=== PATIENT | female | born 2005 | race Caucasian/White ===

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

== ENCOUNTER 2025-06-08 09:30 | Emergency (ER) | payer OTHER, SELFPAY ==
--- OUTSIDE RECORDS SUMMARY | 2025-06-08 06:25 | XMS_ITS | Encounter Summary ---
Author Organization [facility] Address [address] [place] [address] Care Team Providers Care Retrieval Specialist Name Role Phone Kenneth Gr MD Primary Care Provider [phone] Reason for Visit * Reason Comments Abdominal Pain Vomiting Nausea Menstrual Problem Encounter Details Date Type Department Care Team (Late st Contact Info) Description 06/08/2025 6:25 AM CDT - 06/08/2025 8:34 AM CDT Emergency [facility] Emergency Medicine [address] [address] Frank Galaviz, [address] [place] [address] Marisabel Ferrera MD [address] [facility] [address] [place] [address] Vaginal bleeding in , first trimester (Primary Dx) Discharge Disposition: Acute Care Hospital Social History Tobacco Use Types Packs/Day Years Used Date Smoking Tobacco: Never Passive Smoke Exposure: Never Smokeless Tobacco: Never Alcohol Use Standard Drinks/Week Comments No 0 (1 standard drink = 0.6 oz pur e alcohol) Feeling Safe Answer Date Recorded Are you in a relationship wi th someone who hurts you emotionally and/or physically? 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 Gender Identity Not on file Sexual Orientation Not on file documented as of this encounter Last Filed Vital Signs Vital Sign Reading Time Taken Comments Blood Pressure 113/58 06/08/2025 8:30 AM CDT Pulse 84 06/08/2025 8:30 AM CDT Temperature 36.6 C (97.8 F) 06/08/2025 8:30 AM CDT Respiratory Rate 18 06/08/2025 8:30 AM CDT Oxygen Saturation 98% 06/08/2025 8:30 AM CDT Inhaled Oxygen Concentration - - Weight 90.1 kg (198 lb 9.6 oz) 06/08/2025 6:18 A M CDT Height 167.6 cm (5' 6 ) 06/08/2025 6:18 AM CDT Body Mass Index 32.05 06/08/2025 6:18 AM CDT documented in this encounter Medications at Time of Discharge tiZANidine (ZANAFLEX) 2 mg TabletIndications:A cute midline low back pain without sciatica Take 1 Tablet (2 mg) by mouth every 6 hours as needed for Spasm. 45 Tablet 2025 levothyroxine 125 mcg tabletIndications:A cquired hypothyroidism Take 1 Tablet (125 mcg) by mouth daily in the morning. Repeat labs before refill 90 Tablet 3 01/03/2025 ibuprofen (MOTRIN) 600 mg tabletIndications:R ight elbow tendonitis TAKE 1 TABLET BY MOUTH EVERY 6 HOURS NEEDED FOR MILD PAIN 90 Tablet 1 02/21/2023 Ventolin HFA 90 mcg/actuation inhalerIndications: Mild persistent asthma without complication INHALE 2 PUFFS BY MOUTH EVERY 6 HOURS NEEDED FOR SHORTNESS OF BREATH 18 Gram 5 02/21/2023 albuterol (PROVENTIL,VENTOLIN ) 2.5 mg /3 mL (0.083 %) Solution for NebulizationIndicat ions:Moderate persistent asthma with acute exacerbation USE 1 VIAL IN NEBULIZER EVERY 4 HOURS NEEDED FOR SHORTNESS OF BREATH OR WHEEZING 180 mL 2 12/06/2023 nebulizerIndication s:Moderate persistent asthma with acute exacerbation Length of need 99 months Nebulizer with compressor, Kit: Disposable Nebulizer Kit, 2 per month, filters , areosol mask: Yes. Name of Medication Albuterol 1 Each 09/02/2022 inhalational spacing device (Microchamber) Spacer Use with inhaler 2 puffs every 6 hours as needed for wheezing 1 Each 04/01/2020 diphenhydrAMINE (BENADRYL) 25 mg tablet Take 25 mg by mouth every 6 hours as needed for Allergies. 11/13/2018 acetaminophen (TYLENOL) 500 mg tablet Take 500 mg by mouth every 6 hours as needed. 11/13/2018 documented as of this encounter ED Notes * Shannan Lester RN - 06/08/2025 8:33 AM CDT Instructions given and understands to go straight to [facility] and nothing to eat or drink. Mom is the hook up driver. Ambulates out of ER well but tearful. Belongings and transfer paperwork sent with patient. Patient remains alert and oriented x 4. Respirations even and unlabored. Jessica pad clean and dry upon leaving. * Shannan Lester RN - 06/08/2025 8:09 AM CDT Provider at bedside. * Shannan Lester RN - 06/08/2025 8:[address] Ferrera speaking to DR Uribe with [facility]. * Shannan Lester RN - 06/08/2025 7:[address] Ferrera calling [facility] Supervisor. Patient in bathroom and noted what appears to be a large clot with possible tissue/ products of conception on pad, collected and sent tolab. DR Ferrera notified * Shannan Lester RN - 06/08/2025 7:23 AM CDT Provider at bedside. * Mitra Berrios RN - 06/08/2025 6:22 AM CDT Carmen Wen 20 y.o. female, arrived to the ED via TRANSPORTATION: private vehicle for complaints of abdomen pain with irregular menses , per patient started about 0430 this am, with pain and passing blood clots, per patient has changed pad 4 times since 4 am , states pad was soaked. Complaining of lower abdomen pain 8/10 intermittent sharp pain. States she has vomited X 2 since 4 am. Chief Complaint Patient presents with Abdominal Pain Vomiting Nausea Menstrual Problem . Vitals taken, patient placed on monitor, clothing removed as needed per policy, privacy provided to patient. Respiratory: WDL - Regular rhythm, symmetrical chest expansion, no dyspnea , Cardiac/Circulatory: WDL - No numbness or tingling, no chest pain , Skin: WDL - Normal color for ethnicity, skin intact, patient is Alert and Oriented x4, pain scale: 8/10, findings; bleeding: see note above noted. Behavior during evaluation: appropriate. Belongings secured, patient Weapons assessment: denied possession of any weapons or firearms at this time. Patient comforted, all questions answered to thebest of the staff's ability, education performed, and left patient in the room with the call light in reach, bed in lowest position, wheels locked, side rails up, per patient her mom is waiting in car. * Marisabel Ferrera MD - 06/08/2025 6:08 AM CDT HISTORY OF PRESENT ILLNESS 20 yo female, comes in with abdominal pain, nausea vomiting. She is also been having worse menstrual period than she normally has. This all started about 4:30 AM. The pain came on and she started passing vaginal blood clots. She has changed her pad 4 times since 4 AM. She states the pads were soaked. She states that it is her lower belly that hurts. She states it is a sharp pain. She rates it an 8/10. She states she has vomited 3 times since 4 AM. She states it is just fluid. She is not able tohold anything down. She states she ate a hot dog last night. She also states she took a muscle relaxer last night which did help somewhat. 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 Relieved by: Muscle relaxer helps somewhat. Worsened by: Nothing tried Ineffective treatments: None tried Associated symptoms: nausea, vaginal bleeding and vomiting Associated symptoms: no anorexia, no belching, no chest pain, no chills, no constipation, no cough,no diarrhea, no dysuria, no fatigue, no fever, no flatus, no hematuria, no melena, no shortness of breath, no sore throat and no vaginal discharge Nausea: Severity: Moderate Onset quality: Sudden Nausea duration: Since 4:30 AM. Timing: Constant Progression: Worsening Vaginal bleeding: Quality: Clots Severity: Moderate Number of pads used: 4 this morning Onset quality: Sudden Duration: Since 4:30 AM. Progression: Unchanged Chronicity: New Vomiting: Emesis appearance: Liquid. Number of occurrences: 3 Severity: Moderate Vomiting duration: Since 4:30 AM. Timing: Intermittent Progression: Unchanged Risk factors: obesity Risk factors: no alcohol abuse, no aspirin use, not elderly, has not had multiple surgeries, no NSAID use, not and no recent hospitalization Vomiting Associated symptoms: abdominal pain Associated symptoms: no chills, no cough, no diarrhea, no fever and no sore throat Nausea Associated symptoms: abdominal pain Associated symptoms: no chills, no cough, no diarrhea, no fever and no sore throat Menstrual Problem Primary symptoms comment: Heavy menses with clots Context: spontaneously Relieved by: None tried Worsened by: Nothing Sexual activity: Sexually active Control: Nothing now: Unknown. Associated symptoms: abdominal pain, nausea and vomiting Associated symptoms: no dysuria and no fever PAST MEDICAL HISTORY REVIEWED MEDICAL: Patient has a past medical history of Anxiety, Asthma, Bronchitis, Dyspnea on exertion, Environmental allergies, Eye injury, Eye injury, Eye injury, Headache, Motion sickness, Pneumonia, Seizure disorder (CMS/HCC), and Thyroid disease. SURGICAL: Patient has a past surgical history that includes pr submucous rescj inferior turbinate prtl/compl (Bilateral, 11/15/2018) and pr tonsillectomy & adenoidectomy age 12/> (Bilateral, 11/15/2018). ALLERGIES Cat hair std allergenic ext; Grass pollen-farhad, standard; Milk; Mite extract; [place]; Peanut; Ragweed; and Fluoxetine PHYSICAL EXAM INITIAL VS BP: 118/88 (06/08/25617), Heart Rate: 73 bpm (06/08/25617), Resp: 18 (06/08/25617), Pulse: 67(06/08/25644), Temp: 96.9 ??F (36.1 ??C) (06/08/25617), Temp src: Temporal (06/08/25617), SpO2: 100 % (06/08/25617), Height: 5' 6 (167.6 cm) (06/08/25617), Weight: 90.1 kg (198 lb 9.6 oz) (06/08/25617), BMI (Calculated): (!) 32.08 (06/08/25617) Patient's last menstrual period was 06/05/2025 (exact date). Physical Exam Vitals and nursing note reviewed. Constitutional: General: She is in acute distress. Appearance: Normal appearance. She is well-developed. She is obese. She is not ill-appearing, toxic-appearing or diaphoretic. Comments: Patient appears to be in pain. HENT: Head: Normocephalic and atraumatic. Nose: Nose normal. No congestion or rhinorrhea. Mouth/Throat: Mouth: Mucous membranes are dry. Pharynx: Oropharynx is clear. No pharyngeal swelling, oropharyngeal exudate or posterior oropharyngeal erythema. Eyes: General: No scleral icterus. Right eye: No discharge. Left eye: No discharge. Extraocular Movements: Extraocular movements intact. Conjunctiva/sclera: Conjunctivae normal. Pupils: Pupils are equal, round, and reactive to light. Cardiovascular: Rate and Rhythm: Normal rate and regular rhythm. Pulses: Normal pulses. Heart sounds: Normal heart sounds. No murmur heard. No friction rub. No gallop. Pulmonary: Effort: Pulmonary effort is normal. No respiratory distress. Breath sounds: Normal breath sounds. No stridor. No wheezing, rhonchi or rales. Chest: Chest wall: No tenderness. Abdominal: General: Abdomen is flat. Bowel sounds are normal. There is no distension or abdominal bruit. Thereare no signs of injury. Palpations: Abdomen is soft. There is no shifting dullness, fluid wave, hepatomegaly, splenomegaly,mass or pulsatile mass. Tenderness: There is abdominal tenderness in the right lower quadrant, suprapubic area and left lower quadrant. There is rebound. There is no right CVA tenderness, left CVA tenderness or guarding. Comments: Moderate reproducible left lower, suprapubic and right lower quadrant tenderness with right lower rebound noted. Musculoskeletal: General: No swelling, tenderness, deformity or signs of injury. Normal range of motion. Cervical back: Normal range of motion and neck supple. No rigidity or tenderness. No muscular tenderness. Right lower leg: No edema. Left lower leg: No edema. Lymphadenopathy: Cervical: No cervical adenopathy. Skin: General: Skin is warm and dry. Coloration: Skin is not cyanotic, jaundiced, mottled or pale. Findings: No bruising, erythema, lesion or rash. Neurological: General: No focal deficit present. Mental Status: She is alert and oriented to person, place, and time. Motor: No weakness. Coordination: Coordination normal. Psychiatric: Mood and Affect: Mood normal. Behavior: Behavior normal. DIAGNOSTICS LAB: CBC WITH DIFFERENTIAL - Abnormal Result Value WBC 8.5 RBC 3.79 (*) HEMOGLOBIN 10.8 (*) HEMATOCRIT 32.5 (*) MCV 85.8 MCH 28.5 MCHC 33.2 RDW 14.2 RDW-STDEV 44.1 PLATELETS 290 MPV 10.8 NEUTROPHILS 66 LYMPHOCYTES 22 MONOCYTES 8 EOSINOPHILS 4 BASOPHILS 1 IMMATURE GRANULOCYTES 0 NEUTROPHIL ABSOLUTE 5.60 LYMPHOCYTE ABSOLUTE 1.84 MONOCYTE ABSOLUTE 0.66 (*) EOSINOPHIL ABSOLUTE 0.31 BASOPHILS ABSOLUTE 0.06 IMMATURE GRANULOCYTES ABSOLUTE 0.03 COMPREHENSIVE METABOLIC PANEL - Abnormal SODIUM 139 POTASSIUM 3.1 (*) CHLORIDE 103 CO2 23 CALCIUM 9.5 BUN 10 CREATININE 0.64 GLUCOSE 86 TOTAL PROTEIN 7.6 ALBUMIN 4.3 BILIRUBIN TOTAL 0.5 ALKALINE PHOSPHATASE 80 AST 15 ALT 10 GFR >60 ANION GAP 13 HCG QUALITATIVE, BLOOD - Abnormal HCG QUAL, BLOOD Positive (*) HCG QUANTITATIVE, BLOOD - Abnormal HCG QUANT, BLOOD 5,006.0 (*) PATHOLOGY RADIOLOGY: No orders to display EKG: PROCEDURES Procedures MEDICAL DECISION MAKING AND PLAN OF CARE Medical Decision Making Assumed care of the patient from slot shift supervisor at 7 AM. By now patient has received 1 L of IV NS and a dose of Zofran 4 mg. Patient has slightly decreased hemoglobin of 10.8 with normal WBC and no left shift. Patient's potassium is 3.1 and other electrolytes are intact. LFT, renal function are all intact. Patient did state that her last menstrual period was possibly on 05/08/2025. Patient denied ever knowingly being . Denied any history of STI. Beta-hCG G is about 5000. Patient passed a large clot mixed with what looked like large amount of tissue. The tissue has been sent out for pathology evaluation. Discussed the case with Dr. Uribe from [facility] in [place] ER who accepted the patient for ER to ER transfer said patient can be evaluated with ultrasound and possibly [facility] if necessary. Pelvic examination was performed there is tenderness in the right adnexa and on speculum examination there is no large clot at the os, however patient has active bleeding. Did not see any other type of discharge and cervix is intact. Patient will go by [facility] directly to [place] emergency department. Amount and/or Complexity of Data Reviewed Labs: ordered. Risk Prescription drug management. Clinical Scoring & Consults Medications Administered During the ED Stay from 06/08/2025 06 to 06/08/2025827 Date/Time Order Dose Route Action 06/08/2025643 CDT sodium chloride 0.9 % bolus solution 1,000 mL 1,000 mL IV New Bag 06/08/2025643 CDT ondansetron (ZOFRAN) 4 mg/2 mL injection 4 mg 4 mg IV Given 06/08/2025718 CDT potassium CHLORIDE (K-DUR,KLOR-CON M20) SR tablet 40 mEq 40 mEq Oral Given Current Discharge Medication List CONTINUE these medications which have NOT CHANGED Details tiZANidine (ZANAFLEX) 2 mg Tablet Take 1 Tablet (2 mg) by mouth every 6 hours as needed for Spasm. Qty: 45 Tablet, Refills: 0 Associated Diagnoses: Acute midline low back pain without sciatica levothyroxine 125 mcg tablet Take 1 Tablet (125 mcg) by mouth daily in the morning. Repeat labs before refill Qty: 90 Tablet, Refills: 3 Associated Diagnoses: Acquired hypothyroidism ibuprofen (MOTRIN) 600 mg tablet TAKE 1 TABLET BY MOUTH EVERY 6 HOURS NEEDED FOR MILD PAIN Qty: 90 Tablet, Refills: 1 Associated Diagnoses: Right elbow tendonitis Ventolin HFA 90 mcg/actuation inhaler INHALE 2 PUFFS BY MOUTH EVERY 6 HOURS NEEDED FOR SHORTNESSOF BREATH Qty: 18 Gram, Refills: 5 Associated Diagnoses: Mild persistent asthma without complication albuterol (PROVENTIL,VENTOLIN) 2.5 mg /3 mL (0.083 %) Solution for Nebulization USE 1 VIAL IN NEBULIZER EVERY 4 HOURS NEEDED FOR SHORTNESS OF BREATH OR WHEEZING Qty: 180 mL, Refills: 2 Associated Diagnoses: Moderate persistent asthma with acute exacerbation nebulizer Length of need 99 months Nebulizer with compressor, Kit: Disposable Nebulizer Kit, 2 per month, filters , areosol mask: Yes.Name of Medication Albuterol Qty: 1 Each, Refills: 0 Comments: HOME Associated Diagnoses: Moderate persistent asthma with acute exacerbation inhalational spacing device (Microchamber) Spacer Use with inhaler 2 puffs every 6 hours as needed for wheezing Qty: 1 Each, Refills: 11 diphenhydrAMINE (BENADRYL) 25 mg tablet Take 25 mg by mouth every 6 hours as needed for Allergies. acetaminophen (TYLENOL) 500 mg tablet Take 500 mg by mouth every 6 hours as needed. STOP taking these medications ferrous sulfate (FeroSuL) 325 mg (65 mg iron) tablet Comments: Reason for Stopping: LAST VS BP: (!) 115/97 (06/08/25799), Heart Rate: 73 bpm (06/08/25617), Resp: 18 (06/08/25799), Pulse: 75 (06/08/25799), Temp: 96.9 ??F (36.1 ??C) (06/08/25617), Temp src: Temporal (06/08/25617),SpO2: 100 % (06/08/25799) CLINICAL IMPRESSION Diagnosis Diagnosis Comment Added By Time Added Vaginal bleeding in , first trimester [O20.9] Frank Galaviz DO 06/08/2025 6:52 AM DISPOSITION, EDUCATION AND MEDICATION RECONCILIATION Medications reconciled. See after visit summary for patient education on discharged patients. ED Disposition ED Disposition Transfer Condition Stable User Marisabel Ferrera MD Date/Time Sat Jun 08, 2025 8:02 AM Comment -- ATTESTATION STATEMENTS documented in this encounter Plan of Treatment Scheduled Orders Name Type Priority Associated Diagnoses Orde r Schedule PATHOLOGY Pathology Pathology ONE TIME for 1 Occurrences starting 06/08/2025 until 06/08/2025 documented as of this encounter Procedures Procedure Name Priority Date/Time Associated Diagnosis Comments HCG QUALITATIVE, SERUM Stat 6:20 AM CDT CBC WITH DIFFERENTIAL Stat 06/08/2025 6:20 AM CDT HCG QUANTITATIVE, BLOOD Stat 06/08/2025 6:20 AM CDT COMPREHENSIVE METABOLIC PANEL Stat 06/08/2025 6:20 AM CDT documented in this encounter Results * (ABNORMAL) HCG QUANTITATIVE, BLOOD (06/08/2025 6:20 AM CDT) HCG QUANT, BLOOD 5,006.0(H ) <=1.0 mIU/mL 06/08/2025 7:47 AM CDT [facility] Comment: Male <= 2 mIU/mL Female Non premenopausal <= 1 mIU/mL Non postmenopausal <= 7 mIU/mL Gestational Age HCG Concentration 3 Weeks 5.4 - 72.0 mIU/mL 4 Weeks 10.2 - 708 mIU/mL 5 Weeks 217 - 8245 mIU/mL 6 Weeks 152 - 32,177 mIU/mL 7 Weeks 4059 - 153,767 mIU/mL 8 Weeks 31,366 - 149,094 mIU/mL 9 Weeks 59,109 - 135,901 mIU/mL 10 Weeks 44,186 - 170,409 mIU/mL 12 Weeks 27,107 - 201,615 mIU/mL 14 Weeks 24,302 - 93,646 mIU/mL 15 Weeks 12,540 - 69,747 mIU/mL 16 Weeks 8904 - 55,332 mIU/mL 17 Weeks 8240 - 51,793 mIU/mL 18 Weeks 9649 - 55,271 mIU/mL Blood Venipuncture / Unknown 06/08/2025 6:20 AM CDT 06/08/2025 6:35 AM CDT us Frank Y Galaviz DO CHEMISTRY ORDERABLES Final Resul t [facility] CLIA # [id number] [address] [place] [id number] * (ABNORMAL) HCG QUALITATIVE, BLOOD (06/08/2025 6:20 AM CDT) HCG QUAL, BLOOD Positive(A ) Negative 06/08/2025 6:42 AM CDT [facility] Blood Venipuncture / Unknown 06/08/2025 6:20 AM CDT 06/08/2025 6:35 AM CDT us Frank Y Anastacia DO CHEMISTRY ORDERABLES Final Resul t [facility] CLIA # [id number] [address] [place] [id number] * (ABNORMAL) COMPREHENSIVE METABOLIC PANEL (06/08/2025 6:20 AM CDT) SODIUM 139 136 - 145 mmol/L 06/08/2025 7:02 AM [facility] POTASSIUM 3.1(L) 3.5 - 5.1 mmol/L 06/08/2025 7:02 AM [facility] CHLORIDE 103 98 - 107 mmol/L 06/08/2025 7:02 AM [facility] CO2 23 22 - 29 mmol/L 06/08/2025 7:02 AM [facility] CALCIUM 9.5 8.6 - 10.0 mg/dL 06/08/2025 7:02 AM [facility] BUN 10 6 - 20 mg/dL 06/08/2025 7:02 AM [facility] CREATININE 0.64 0.51 - 0.95 mg/dL 06/08/2025 7:02 AM [facility] GLUCOSE 86 74 - 99 mg/dL 06/08/2025 7:02 AM [facility] TOTAL PROTEIN 7.6 6.6 - 8.7 g/dL 06/08/2025 7:02 AM [facility] ALBUMIN 4.3 3.5 - 5.2 g/dL 06/08/2025 7:02 AM [facility] BILIRUBIN TOTAL 0.5 0.0 - 1.2 mg/dL 06/08/2025 7:02 AM [facility] ALKALINE PHOSPHATASE 80 35 - 104 U/L 06/08/2025 7:02 AM [facility] AST 15 0 - 35 U/L 06/08/2025 7:02 AM [facility] ALT 10 0 - 35 U/L 06/08/2025 7:02 AM [facility] GFR >60 >=60 mL/min/1.7 3 sq meter 06/08/2025 7:02 AM [facility] Comment:eGFR calculated with 2020 CKD-EPI equation. Vegetarian diet, extremely high or low muscle mass, and may affect results. Cystatin C with Glomerular Filtration Rate is a suitable alternative for these patients. ANION GAP 13 5 - 20 mmol/L 06/08/2025 7:02 AM [facility] Blood Venipuncture / Unknown 06/08/2025 6:20 AM CDT 06/08/2025 6:35 AM CDT us Frank Y Galaviz DO CHEMISTRY ORDERABLES Final Resul t [facility] CLIA # [id number] [address] [place] [address] [phone] * (ABNORMAL) CBC WITH DIFFERENTIAL (06/08/2025 6:20 AM CDT) WBC 8.5 4.0 - 10.0 K/uL 06/08/2025 6:42 AM [facility] RBC 3.79(L) 3.93 - 5.22 M/uL 06/08/2025 6:42 AM [facility] HEMOGLOBIN 10.8(L) 11.2 - 15.7 g/dL 06/08/2025 6:42 AM [facility] HEMATOCRIT 32.5(L) 34.1 - 44.9 % 06/08/2025 6:42 AM [facility] MCV 85.8 79.4 - 94.8 fL 06/08/2025 6:42 AM [facility] MCH 28.5 25.6 - 32.2 pg 06/08/2025 6:42 AM [facility] MCHC 33.2 32.2 - 35.5 g/dL 06/08/2025 6:42 AM [facility] RDW 14.2 11.0 - 14.5 % 06/08/2025 6:42 AM [facility] RDW-STDEV 44.1 36.9 - 56.9 fL 06/08/2025 6:42 AM [facility] PLATELETS 290 163 - 337 K/uL 06/08/2025 6:42 AM [facility] MPV 10.8 10.0 - 14.8 fL 06/08/2025 6:42 AM [facility] NEUTROPHILS 66 34 - 71 % 06/08/2025 6:42 AM [facility] LYMPHOCYTES 22 19 - 52 % 06/08/2025 6:42 AM [facility] MONOCYTES 8 5 - 13 % 06/08/2025 6:42 AM [facility] EOSINOPHILS 4 1 - 6 % 06/08/2025 6:42 AM [facility] BASOPHILS 1 0 - 1 % 06/08/2025 6:42 AM [facility] IMMATURE GRANULOCYTES 0 % 06/08/2025 6:42 AM [facility] NEUTROPHIL ABSOLUTE 5.60 1.56 - 6.13 K/uL 06/08/2025 6:42 AM [facility] LYMPHOCYTE ABSOLUTE 1.84 1.20 - 3.40 K/uL 06/08/2025 6:42 AM [facility] MONOCYTE ABSOLUTE 0.66(H) 0.24 - 0.36 K/uL 06/08/2025 6:42 AM [facility] EOSINOPHIL ABSOLUTE 0.31 0.04 - 0.36 K/uL 06/08/2025 6:42 AM [facility] BASOPHILS ABSOLUTE 0.06 0.01 - 0.08 K/uL 06/08/2025 6:42 AM [facility] IMMATURE GRANULOCYTES ABSOLUTE 0.03 K/uL 06/08/2025 6:42 AM [facility] Blood Venipuncture / Unknown 06/08/2025 6:20 AM CDT 06/08/2025 6:35 AM CDT us Frank Y Galaviz DO HEMATOLOGY ORDERABLES [facility] CLIA # [id number] [address] [place] [phone] documented in this encounter Visit Diagnoses Diagnosis Vaginal bleeding in , first trimester- Primary Vaginal bleeding in , first trimester documented in this encounter Administered Medications Inactive Administered Medications - up to 3 most recent administrations Medication Order MAR Action Action Date Dose Rate Site ondansetron (ZOFRAN) 4 mg/2 mL injection 4 mg 4 mg, IV, ONE TIME ONLY, 1 dose, On 06/08/25 at 0645, Routine Given 06/08/2025 6:44 AM CDT 4 mg potassium CHLORIDE (K-DUR,KLOR-CON M20) SR tablet 40 mEq 40 mEq, Oral, ONE TIME ONLY, 1 dose, On 06/08/25 at 0715, Routine Given 06/08/2025 7:19 AM CDT 40 mEq sodium chloride 0.9 % bolus solution 1,000 mL 1,000 mL, IV, ONE TIME ONLY, 1 dose, On 06/08/25 at 0645, at 2,000 mL/hr, Administer over 30 Minutes, Routine New Bag 06/08/2025 6:44 AM CDT 1,000 mL 2000 mL/hr documented in this encounter Active and Recently Administered Medications Times are shown in CDT. Scheduled Medication Order 06/06/2025 06/07/2025 06/08/2025 ondansetron (ZOFRAN) 4 mg/2 mL injection 4 mg (COMPLETED) 4 mg, IV, ONE TIME ONLY, 1 dose, On 06/08/25 at 0645, Routine 0644 (Given - Provid er: Mitra Berrios RN) potassium CHLORIDE (K-DUR,KLOR-CON M20) SR tablet 40 mEq (COMPLETED) 40 mEq, Oral, ONE TIME ONLY, 1 dose, On 06/08/25 at 0715, Routine 0719 (Given - Provid er: Shannan Lester RN) sodium chloride 0.9 % bolus solution 1,000 mL (COMPLETED) 1,000 mL, IV, ONE TIME ONLY, 1 dose, On 06/08/25 at 0645, at 2,000 mL/hr, Administer over 30 Minutes, Routine 0644 (New Bag - Prov ider: Mitra Berrios, RN)0830 (Stopped - Provider: Shannan Lester, RN) documented in this encounter Additional Health Concerns Assessment Noted Time PHQ-9 Depression Total Score: 1 05/28/20 25 3:09 PM CDT documented as of this encounter Care Teams Retrieval Specialist Relationship Specialty Start Date End Date Kenneth Gr MD [address] [address] PCP - General Family Practice 01/31/18 documented as of this encounter
--- NOTE | 2025-06-08 09:37 | USR_ITS ---
PROCEDURE INFORMATION: Exam: US , Transvaginal Exam date and time: 06/08/2025 10:21 AM Age: 20 years old Clinical indication: Lmp or gestational age (in weeks): 4w; Antepartum complications; Bleeding; Additional info: Threatened miscarriage LABS AND CLINICAL REPORTS: Last menstrual period start date: 05/08/2025 Estimated due date (Established): 02/12/2026 TECHNIQUE: Imaging protocol: Real-time transvaginal obstetrical ultrasound of the maternal pelvis with image documentation. Transvaginal imaging was used for better evaluation of the fetus, adnexa, and/or cervix. COMPARISON: No relevant prior studies available. FINDINGS: Last menstrual period: LMP 05/08/2025 (gestational age 4 weeks 3 days with EDC 02/12/2026) Gestation: See Uterus finding. MATERNAL: Uterus: The uterus measures 3.7 x 5.5 cm. Endometrium measures 1.1 cm in diameter. No intrauterine identified. Cervix: Cervical length measures 3.3 cm. Right ovary/adnexa: There is a 1.7 x 1.2 x 1.9 cm cyst in the right adnexa. It is nonspecific. Right ovary measures 2.5 x 1.7 x 2.4 cm. There are normal follicles. There is normal blood flow. Left ovary/adnexa: The left ovary measures 2.1 x 1.5 x 1.1 cm. There is normal blood flow. There are normal follicles. Intraperitoneal space: There is no free fluid. US/US OB transvaginal [id number] IMPRESSION: No evidence of intra or extra uterine . Correlate with beta HCG. Nonspecific cyst in the right adnexa.
--- OUTSIDE RECORDS SUMMARY | 2025-06-08 09:41 | XMS_ITS | Encounter Summary ---
Author Organization [facility] Address [address] [place] [address] Care Team Providers Care Refund Clerk Name Role Phone Kenneth Gr MD Primary Care Provider [phone] Encounter Details Date Type Department Care Team (Late st Contact Info) Description 06/28/[address] [facility] Family Medicine- [address] [address] [place] [address] Social History Tobacco Use Types Packs/Day Years Used Date Smoking Tobacco: Never Assessed Comments Unknown Sex and Gender Information Value Date Recorded Sex Assigned at Not on file Legal Sex Female 5:01 AM CORPORATE TRAVEL EXPERT Gender Identity Not on file Sexual Orientation Not on file documented as of this encounter Plan of Treatment Not on file documented as of this encounter Visit Diagnoses Not on filedocumented in this encounter Additional Health Concerns Infection Onset Date Last Indicated Resolved Time R/O COVID-19 05/06/2020 05/06/2020 05/08/2020 5:00 AM CDT R/O COVID-19 07/21/2020 07/21/2020 07/23/2020 6:45 AM CORPORATE TRAVEL EXPERT documented as of this encounter Care Teams Refund Clerk Relationship Specialty Start Date End Date Kenneth Gr MD [address] [place] [phone] PCP - General Family Practice 01/31/18 documented as of this encounter
--- OUTSIDE RECORDS SUMMARY | 2025-06-08 09:41 | XMS_ITS | Encounter Summary ---
Author Organization [facility] Address [address] [place] [address] Care Team Providers Care Coil Binder Name Role Phone Kenneth Gr MD Primary Care Provider [phone] [phone] Encounter Details Date Type Department Care Team (Latest Contact Info) Description 12/29/2006 Outpatient Historical [facility] Medicine [place] [address] [facility] [address] [place] [address] Susu Gold, HOTEL BREAKFAST ATTENDANT [address] [place] [address] Streptococcal Sore Throat (Primary Dx) Social History Tobacco Use Types Packs/Day Years Used Date Smoking Tobacco: Never Assessed Comments Unknown Sex and Gender Information Value Date Recorded Sex Assigned at Not on file Legal Sex Female 5:01 AM RUBBER PRESS OPERATOR Gender Identity Not on file Sexual Orientation Not on file documented as of this encounter Plan of Treatment Not on file documented as of this encounter Visit Diagnoses Diagnosis Streptococcal sore throat- Primary documented in this encounter Additional Health Concerns Infection Onset Date Last Indicated Resolved Time R/O COVID-19 05/06/2020 05/06/2020 05/08/2020 5:00 AM CDT R/O COVID-19 07/21/2020 07/21/2020 07/23/2020 6:45 AM RUBBER PRESS OPERATOR documented as of this encounter Care Teams Coil Binder Relationship Specialty Start Date End Date Kenneth Gr MD [address] [facility] [address] [place] [address] PCP - General Family Practice 01/31/18 documented as of this encounter
--- OUTSIDE RECORDS SUMMARY | 2025-06-08 09:41 | XMS_ITS | Encounter Summary ---
Author Organization [facility] Address [address] [place] [address] Care Team Providers Care Computer Systems Information Director Name Role Phone Kenneth Gr MD Primary Care Provider [phone] Encounter Details Date Type Department Care Team (Late st Contact Info) Description 08/09/2019 Ancillary Orders [facility] Family Medicine [place] 104 [facility] [address] [place] [address] Kenneth Gr MD [address] [address] Acute midline thoracic back pain Social History Tobacco Use Types Packs/Day Years Used Date Smoking Tobacco: Passive Smo ke Exposure - Never Smoker Smokeless Tobacco: Never Alcohol Use Standard Drinks/Week Comments No 0 (1 standard drink = 0.6 oz pur e alcohol) Comments No Sex and Gender Information Value Date Recorded Sex Assigned at Not on file Legal Sex Female 5:01 AM CATERPILLAR OPERATOR Gender Identity Not on file Sexual Orientation Not on file Occupation Industry Job Start Date Job End Date Not on file Not on file Not on file Not on file documented as of this encounter Plan of Treatment Not on file documented as of this encounter Results * XR THORACIC SPINE 3 VW (08/09/2019 12:03 PM CATERPILLAR OPERATOR) Anatomical Region Laterality Modality Spine Computed Radiogr aphy 08/09/2019 12:0 4 PM CATERPILLAR OPERATOR Impressions 08/09/2019 1:25 PM CATERPILLAR OPERATOR IMPRESSION: Please see below. Exam: XR THORACIC SPINE 3 VW Date/Time of Exam: 08/09/2019 12:03 PM Reason For Exam: See Diagnosis. Diagnosis: Acute midline thoracic back pain. Comparison: None FINDINGS: Frontal, lateral and swimmer's projections show no acute fracture or subluxation. Mild to moderate intervertebral osteochondrotic changes over the mid and distal levels with some chronic ventral wedging, findings consistent with Scheuermann's disease. Narrative Procedure Note CarynFrank Dasha, DO - 08/09/2019 IMPRESSION: Please see below. Exam: XR THORACIC SPINE 3 VW Date/Time of Exam: 08/09/2019 12:03 PM Reason For Exam: See Diagnosis. Diagnosis: Acute midline thoracic back pain. Comparison: None FINDINGS: Frontal, lateral and swimmer's projections show no acute fracture or subluxation. Mild to moderate intervertebral osteochondrotic changes over the mid and distal levels with some chronic ventral wedging, findings consistent with Scheuermann's disease. Kenneth Gr MD DIAGNOSTIC IMAGING [facility] Final Result documented in this encounter Visit Diagnoses Diagnosis Acute midline thoracic back pain Acute midline thoracic back pain documented in this encounter Additional Health Concerns Infection Onset Date Last Indicated Resolved Time R/O COVID-19 05/06/2020 05/06/2020 05/08/2020 5:00 AM CDT R/O COVID-19 07/21/2020 07/21/2020 07/23/2020 6:45 AM CATERPILLAR OPERATOR documented as of this encounter Care Teams Computer Systems Information Director Relationship Specialty Start Date End Date Kenneth Gr MD [address] [address] PCP - General Family Practice 01/31/18 documented as of this encounter
--- OUTSIDE RECORDS SUMMARY | 2025-06-08 09:41 | XMS_ITS | Encounter Summary ---
Author Organization [facility] Address [address] [place] [address] Care Team Providers Care Laundry Technician Name Role Phone Kenneth Gr MD Primary Care Provider [phone] [phone] Encounter Details Date Type Department Care Team (Latest Contact Info) Description 10/06/2006 Outpatient Historical [facility] Medicine [place] [address] [address] Susu Gold, POSTAL SUPERVISOR [address] [place] [address] Acute Upper Respiratory Infections of Unspecified Site (Primary Dx) Social History Tobacco Use Types Packs/Day Years Used Date Smoking Tobacco: Never Assessed Comments Unknown Sex and Gender Information Value Date Recorded Sex Assigned at Not on file Legal Sex Female 5:01 AM CORNER BLOCK CUTTER Gender Identity Not on file Sexual Orientation Not on file documented as of this encounter Plan of Treatment Not on file documented as of this encounter Visit Diagnoses Diagnosis Acute upper respiratory infections of unspecified site- Primary documented in this encounter Additional Health Concerns Infection Onset Date Last Indicated Resolved Time R/O COVID-19 05/06/2020 05/06/2020 05/08/2020 5:00 AM CDT R/O COVID-19 07/21/2020 07/21/2020 07/23/2020 6:45 AM CORNER BLOCK CUTTER documented as of this encounter Care Teams Laundry Technician Relationship Specialty Start Date End Date Kenneth Gr MD [address] [phone] PCP - General Family Practice 01/31/18 documented as of this encounter
--- OUTSIDE RECORDS SUMMARY | 2025-06-08 09:41 | XMS_ITS | Encounter Summary ---
Author Organization [facility] Address [address] [place] [address] Care Team Providers Care Civil Engineering Specialist Name Role Phone Kenneth Gr MD Primary Care Provider [phone] Encounter Details Date Type Department Care Team (Latest Contact Info) Description 08/02/2006 Outpatient Historical [facility] Medicine [address] [address] Susu Gold, SUPERVISOR COMMISSARY PRODUCTION [address] [place] [address] Acute Upper Respiratory Infections of Unspecified Site (Primary Dx) Social History Tobacco Use Types Packs/Day Years Used Date Smoking Tobacco: Never Assessed Comments Unknown Sex and Gender Information Value Date Recorded Sex Assigned at Not on file Legal Sex Female 5:01 AM WEB ARCHITECT Gender Identity Not on file Sexual Orientation [...] R/O COVID-19 07/21/2020 07/21/2020 07/23/2020 6:45 AM WEB ARCHITECT documented as of this encounter Care Teams Civil Engineering Specialist Relationship Specialty Start Date End Date Kenneth Gr MD [address] [phone] PCP - General Family Practice 01/31/18 documented as of this encounter
--- OUTSIDE RECORDS SUMMARY | 2025-06-08 09:41 | XMS_ITS | Encounter Summary ---
Author Organization [facility] Address [address] [place] [address] Care Team Providers Care Pin Drafter Operator Name Role Phone Kenneth Gr MD Primary Care Provider [phone] [phone] Encounter Details Date Type Department Care Team (Latest Contact Info) Description 05/31/2025 Results Follow-Up [facility] Family Medicine [place] [address] [address] Ruth Ann Ramirez, [facility] [address] [address] RHEUMATOID FACTOR, CYCLIC CITRULLINATED PEPTIDE AB IGG, MARISSA SCREEN W/REFLEX Social History Tobacco Use Types Packs/Day Years Used Date Smoking Tobacco: Never Passive Smoke Exposure: Never Smokeless Tobacco: Never Alcohol Use Standard Drinks/Week Comments No 0 (1 standard drink = 0.6 oz pur e alcohol) Feeling Safe Answer Date Recorded Are you in a relationship wi th someone who hurts you emotionally and/or physically? No 12/09/2024 Food Insecurity Answer Date Recorded Social/Environmental Concerns No concerns Transportation Needs Answer Date Record ed Social/Environmental Concerns No concerns Housing Stability Answer Date Recorded Social/Environmental Concerns No concerns Utility Needs Answer Date Recorded Social/Environmental Concerns No concerns Comments No Sex and Gender Information Value Date Recorded Sex Assigned at Not on file Legal Sex Female 1:38 PM LIVE IN CAREGIVER Gender Identity Not on file Sexual Orientation Not on file documented as of this encounter Plan of Treatment Not on file documented as of this encounter Visit Diagnoses Not on filedocumented in this encounter Additional Health Concerns Assessment Noted Time PHQ-9 Depression Total Score: 1 05/28/20 25 3:09 PM CDT documented as of this encounter Care Teams Pin Drafter Operator Relationship Specialty Start Date End Date Kenneth Gr MD [address] [address] PCP - General Family Practice 01/31/18 documented as of this encounter
--- OUTSIDE RECORDS SUMMARY | 2025-06-08 09:41 | XMS_ITS | Clinical Summary ---
Author Organization [facility] Address [address] [place]: [place] [address] Care Team Providers Care Rehabilitation Counselor Name Role Phone Kenneth Gr MD Primary Care Provider [phone] Allergies Active Allergy Reactions Criticality Noted Date Comments Cat Hair Std Allergenic Ext Shortness of Breath/Wheezing High 03/28/2012 Fluoxetine Hallucination Low 04/21/2022 Grass Pollen-Tello, Standard Shortness of Breath/Wheezing High 03/28/2012 Milk Anaphylaxis High 03/28/2012 Mite Extract Shortness of Breath/Wheezing High 03/28 [place] Shortness of Breath/Wheezing High 012 Peanut Shortness of Breath/Wheezing High 012 Ragweed Shortness of Breath/Wheezing High 012 Medications diphenhydrAMINE (BENADRYL) 25 mg tablet Take 25 mg by mouth every 6 hours as needed for Allergies. 11/14/19 19 Active acetaminophen (TYLENOL) 500 mg tablet Take 500 mg by mouth every 6 hours as needed. 11/14/19 19 Active inhalational spacing device (Microchamber) Spacer Use with inhaler 2 puffs every 6 hours as needed for wheezing 1 Each 11 04/01/20 Active Additional Information Patient not taking.Reported on 07/13/2024 nebulizerIndicatio ns:Moderate persistent asthma with acute exacerbation Length of need 99 months Nebulizer with compressor, Kit: Disposable Nebulizer Kit, 2 per month, filters , areosol mask: Yes. Name of Medication Albuterol 1 Each 09/02/20 22 Active ibuprofen (MOTRIN) 600 mg tabletIndications: Right elbow tendonitis TAKE 1 TABLET BY MOUTH EVERY 6 HOURS NEEDED FOR MILD PAIN 90 Tablet 1 02/22/20 23 Active Ventolin HFA 90 mcg/actuation inhalerIndications :Mild persistent asthma without complication INHALE 2 PUFFS BY MOUTH EVERY 6 HOURS NEEDED FOR SHORTNESS OF BREATH 18 Gram 5 02/22/20 23 Active albuterol (PROVENTIL,VENTOLI N) 2.5 mg /3 mL (0.083 %) Solution for NebulizationIndica tions:Moderate persistent asthma with acute exacerbation USE 1 VIAL IN NEBULIZER EVERY 4 HOURS NEEDED FOR SHORTNESS OF BREATH OR WHEEZING 180 mL 2 12/06/19 24 Active levothyroxine 125 mcg tabletIndications: Acquired hypothyroidism Take 1 Tablet (125 mcg) by mouth daily in the morning. Repeat labs before refill 90 Tablet 3 01/04/20 25 Active tiZANidine (ZANAFLEX) 2 mg TabletIndications: Acute midline low back pain without sciatica Take 1 Tablet (2 mg) by mouth every 6 hours as needed for Spasm. 45 Tablet 05/28/20 25 Active Hospital, Clinic, or Other Facility Administered Medication Ordered Dose Route Frequency Start Date End Date Status dexAMETHasone (DECADRON) injection 4 mgIndications:Acute midline low back pain without sciatica 4 mg IM ONE TIME ONLY 2025 2025 Ended Active Problems Problem Noted Date Diagnosed Date Vaginal bleeding in , first trimester 1 Hypothyroidism 07/16/2023 Seizure-like activity 07/15/2023 Syncope 07/15/2023 POTS (postural orthostatic tachycardia syndrome) 07/15/2023 S/P tonsillectomy and adenoidectomy 12/21/2018 BILLY (obstructive sleep apnea) 10/31/2018 Hypertrophy of nasal turbinates 10/31/2018 Obesity (BMI 35.0-39.9 without comorbidity) 06/06 Hypermetropia of both eyes 05/10/2018 Commotio retinae of right eye 02/02/2018 Retinal hemorrhage, right 02/02/2018 Anxiety state 07/07/2017 Moderate persistent asthma with acute exacerbati on 04/29/2016 Environmental tobacco smoke exposure 07/07/2015 Tinea corporis 10/14/2014 Environmental allergies 04/22/2012 Tonsillar and adenoid hypertrophy 07/24/2010 Comments Yes Resolved Problems Problem Noted Date Diagnosed Date Resolved Date Morbid obesity with body mas s index of 40.0-49.9 08/18/2021 10/05/2023 Pneumonia, organism unspecified(486) 04/22/2011 11/23/2015 Encounters Date Type Department Care Team Description 06/08/2025 6:25 AM CDT - 06/08/2025 8:34 AM CDT Emergency [facility] Emergency Medicine [address] [facility] [address] [place] [address] Frank Galaviz, DO Maisha, Marisabel Escalona MD Vaginal bleeding in , first trimester (Primary Dx) Discharge Disposition: [facility] 05/31/2025 Results Follow-Up [address] [address] Ruth Ann Ramirez FNP RHEUMATOID FACTOR, CYCLIC CITRULLINATED PEPTIDE AB IGG, MARISSA SCREEN W/REFLEX 05/30/2025 Results Follow-Up [address] [address] Gayatri Albarado RN [facility] 2025 3:20 PM CDT Office Visit [address] [address] Ruth Ann Ramirez FNP Acute midline low back pain without sciatica (Primary Dx); Arthralgia of both hands; Acquired hypothyroidism; Scoliosis of thoracic spine, unspecified scoliosis type 05/21/2025 External Device Data STL ABSTRACTION Provider, Abstract 04/24/2025 External Device Data [place] ABSTRACTION Provider, Abstract 04/10/2025 External Device Data [place] ABSTRACTION Provider, Abstract 03/21/2025 External Device Data ST[place] ABSTRACTION Provider, Abstract from Last 3 Months Immunizations Immunization Administration Dates Next Due (ACTHIB/HIBERIX)(2 MOS-5 YRS /6 WKS-4 YRS) HAEMOPHILUS INFLUENZAE TYPE B VACCINE (HIB), PRP-T CONJUGATE, 4 DOSE, 0.5 ML IM 2005,2005,2005 (ADACEL/BOOSTRIX)(10 YR UP) TDAP VACCINE, 0.5ML, IM 06/30/2018 (GARDASIL 9)(9-45 YRS) HUMAN PAPILLOMAVIRUS VACCINE, TYPES 6, 11, 16, 18, 31, 33, 45, 52, 58, NONAVALENT (9VHPV), 2 OR 3 DOSE, IM 01/25/2023,05/24/2022,04/21/2022 11/21/2022 (HAVRIX/VAQTA)(12 MO-18 YRS) HEPATITIS A VACCINE 0.5 ML PED/ADOL 2 DOSE, IM 01/25/2023 (INFANRIX)(6 WKS-6 YRS) DIPT HERIA, TETANUS TOXOIDS, AND ACCELLULAR PERTUSSIS VACCINE (DTAP), 0.5 ML IM 04/01/2020,11/25/2010,06/08/2006,11/04 (IPOL)(6 WKS AND UP) POLIOVI SRAVANI VACCINE, INACTIVATED (IPV), 3 DOSE, SUBCUT OR IM 11/25/2010,12/12/2007,2005 (MENACTRA)(9 MO-55 YR) MENIN GOCOCCAL POLYSACCHARIDE A, C, Y AND W-135 DIPTHERIA TOXOID CONJUGATE VACCINE, (PF), 0.5ML, IM 06/30/2018 (PEDIARIX)(6 WKS-6 YRS) DIPT HERIA, TETANUS TOXOIDS, ACELLULAR PERTUSSIS, HEPATITIS B, AND INACTIVATED POLIOVIRUS VACCINE (GQCZ-WLIP-ILO), 0.5ML, IM 2005,2005 (VARIVAX)(12 MOS UP)VARICELL A VIRUS VACCINE (PF) 0.5 ML, SUB CUT 11/25/2010,08/15/2007 Dt Dtp Dtap Vaccine 06/08/2006, 6,2005,05/2005 HIB, Unspecified Formulation 06/08/2006, 2005,2005,05/2005 HPV 9 Vaccine 3-dose PF IM SCHIP 05/24/2022,08/1 03/2022 Hepatitis B Vaccine 06/08/2006,2005,2004 Hepatitis B and Haemophilus Influenzae Type B Vaccine (Hib-HepB)IM 06/08/2006 IPV/OPV 12/12/2007, 6,2005,05/2005 Influenza Seasonal Unspecifi ed Formulation IM 06/05/2018 MMRV Vaccine SQ VFC 11/25/2010,08/15/2007 Pneumococcal 7-valent Conjug ate Vaccine IM VFC 02/13/2007,2005,2005 Pneumococcal 7-valent conjug ate vaccine IM 02/13/2007,2005,2005,05/2005 Pneumococcal vaccine, unspec ified formulation 2005 Family History Medical History Relation Name Comments Healthy Brother Healthy Father Migraines Father stress-related Heart Disease Maternal Grandfather Diabetes Maternal Grandmother Heart Disease Maternal Grandmother Migraines Maternal Grandmother Healthy Mother Heart Disease Paternal Grandfather Cancer Paternal Grandmother Breast Cancer Neg Hx Colon Cancer Neg Hx Relation Name Status Comments Brother Alive Father Alive Maternal Grandfather Maternal Grandmother Mother Alive Paternal Grandfather Paternal Grandmother Social History Tobacco Use Types Packs/Day Years Used Date Smoking Tobacco: Never Passive Smoke Exposure: Never Smokeless Tobacco: Never Tobacco Cessation:Counseling Given: No Alcohol Use Standard Drinks/Week Comments No 0 [...] on file 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 Gender Identity Not on file Sexual Orientation Not on file Last Filed Vital Signs Vital Sign Reading [...] Mass Index 32.05 06/08/2025 6:18 AM CDT Plan of Treatment Health Maintenance Due Date Last Done Comments CHLAMYDIA SCREENING (ANNUAL) 11-24 YEARS 2016 Preventative Visit- Commercial 09/05/2024 04/21/2022 , 06/30/2018 INFLUENZA VACCINE (#1) 2025 07/13/2018, 2017 DTAP/TDAP/TD VACCINES (8 - T d or Tdap) 04/01/2030 04/01/2020, 06/30/2018, 11/25/2010, Additional history exists HEPATITIS B VACCINES Completed 06/08/2006, 06/08/2006, 2005, Additional history exists HPV VACCINES Completed 01/25/2023, 05/06, 05/24/2022, Additional history exists Procedures Procedure Name Priority Date/Time Associated Diagnosis Comments HCG QUANTITATIVE, BLOOD Stat 06/08/2025 6:20 AM CDT HCG QUALITATIVE, SERUM Stat 06/08/2025 6:20 AM CDT COMPREHENSIVE METABOLIC PANEL Stat 06/08/2025 6:20 AM CDT CBC WITH DIFFERENTIAL Stat 06/08/2025 6:20 AM CDT TSH Routine 2025 3:40 PM CDT Acquired hypothyroidism MARISSA SCREEN W/REFLEX Routine 2025 3 :40 PM CDT Arthralgia of both hands RHEUMATOID FACTOR Routine 2025 3:4 0 PM CDT Arthralgia of both hands CYCLIC CITRULLINATED PEPTIDE AB IGG Routine 2025 3:40 PM CDT Arthralgia of both hands from Last 3 Months Results * (ABNORMAL) HCG QUALITATIVE, BLOOD (06/08/2025 6:20 AM CDT) Pathologist [facility] HCG QUAL, BLOOD Positive(A ) Negative 06/08/2025 6:42 AM CDT [facility] Blood Venipuncture / Unknown 06/08/2025 6:20 AM CDT 06/08/2025 6:35 AM CDT us Frank Y Galaviz DO CHEMISTRY ORDERABLES Final Resul t [facility] CLIA # [id number] [address] [place] [address] * (ABNORMAL) CBC WITH DIFFERENTIAL (06/08/2025 6:20 AM CDT) Pathologist [facility] WBC 8.5 4.0 - 10.0 K/uL 06/08/2025 6:42 AM CDT [facility] RBC 3.79(L) 3.93 - 5.22 M/uL 06/08/2025 6:42 AM [facility] HEMOGLOBIN 10.8(L) 11.2 - 15.7 g/dL 06/08/2025 6:42 AM T [facility] HEMATOCRIT 32.5(L) 34.1 - 44.9 % 06/08/2025 6:42 AM [facility] MCV 85.8 79.4 - 94.8 fL 06/08/2025 6:42 AM T [facility] MCH 28.5 25.6 - 32.2 pg 06/08/2025 6:42 AM T [facility] MCHC 33.2 32.2 - 35.5 g/dL 06/08/2025 6:42 AM [facility] RDW 14.2 11.0 - 14.5 % 06/08/2025 6:42 AM [facility] RDW-STDEV 44.1 36.9 - 56.9 fL 06/08/2025 6:42 AM [facility] PLATELETS 290 163 - 337 K/uL 06/08/2025 6:42 AM [facility] MPV 10.8 10.0 - 14.8 fL 06/08/2025 6:42 AM [facility] NEUTROPHILS 66 34 - 71 % 06/08/2025 6:42 AM [facility] LYMPHOCYTES 22 19 - 52 % 06/08/2025 6:42 AM [facility] MONOCYTES 8 5 - 13 % 06/08/2025 6:42 AM [facility] EOSINOPHILS 4 1 - 6 % 06/08/2025 6:42 AM [facility] BASOPHILS 1 0 - 1 % 06/08/2025 6:42 AM [facility] IMMATURE GRANULOCYTES 0 % 06/08/2025 6:42 AM [facility] NEUTROPHIL ABSOLUTE 5.60 1.56 - 6.13 K/uL 06/08/2025 6:42 AM [facility] LYMPHOCYTE ABSOLUTE 1.84 1.20 - 3.40 K/uL 06/08/2025 6:42 AM [facility] MONOCYTE ABSOLUTE 0.66(H) 0.24 - 0.36 K/uL 06/08/2025 6:42 AM [facility] EOSINOPHIL ABSOLUTE 0.31 0.04 - 0.36 K/uL 06/08/2025 6:42 AM [facility] BASOPHILS ABSOLUTE 0.06 0.01 - 0.08 K/uL 06/08/2025 6:42 AM [facility] IMMATURE GRANULOCYTES ABSOLUTE 0.03 K/uL 06/08/2025 6:42 AM [facility] Blood Venipuncture / Unknown 06/08/2025 6:20 AM CDT 06/08/2025 6:35 AM CDT us Frank Y Galaviz DO HEMATOLOGY ORDERABLES Final Resu lt [facility] CLIA # [id number] [address] [place] [phone] * (ABNORMAL) HCG QUANTITATIVE, BLOOD (06/08/2025 6:20 AM CDT) HCG QUANT, BLOOD 5,006.0(H ) <=1.0 mIU/mL 06/08/2025 7:47 AM CDT [facility] Comment: Male <= 2 mIU/mL Female Non [...] Galaviz DO CHEMISTRY ORDERABLES Final Resul t [facility] CLIA # [id number] [address] [place] [address] * (ABNORMAL) COMPREHENSIVE METABOLIC PANEL (06/08/2025 6:20 AM CDT) SODIUM 139 136 - 145 mmol/L 06/08/2025 7:02 AM [facility] POTASSIUM 3.1(L) 3.5 - 5.1 mmol/L 06/08/2025 7:02 AM [facility] CHLORIDE 103 98 - 107 mmol/L 06/08/2025 7:02 AM [facility] CO2 23 22 - 29 mmol/L 06/08/2025 7:02 AM [facility] CALCIUM 9.5 8.6 - 10.0 mg/dL 06/08/2025 7:02 AM [facility] BUN 10 6 - 20 mg/dL 06/08/2025 7:02 AM [facility] CREATININE 0.64 0.51 - 0.95 mg/dL 06/08/2025 7:02 AM [facility] GLUCOSE 86 74 - 99 mg/dL 06/08/2025 7:02 AM [facility] TOTAL PROTEIN 7.6 6.6 - 8.7 g/dL 06/08/2025 7:02 AM [facility] ALBUMIN 4.3 3.5 - 5.2 g/dL 06/08/2025 7:02 AM [facility] BILIRUBIN TOTAL 0.5 0.0 - 1.2 mg/dL 06/08/2025 7:02 AM [facility] ALKALINE PHOSPHATASE 80 35 - 104 U/L 06/08/2025 7:02 AM [facility] AST 15 0 - 35 U/L 06/08/2025 7:02 AM [facility] ALT 10 0 - 35 U/L 06/08/2025 7:02 AM [facility] GFR >60 >=60 mL/min/1.7 3 sq meter 06/08/2025 7:02 AM [facility] Comment:eGFR calculated with 2020 CKD-EPI equation. Vegetarian diet, extremely high or low muscle mass, and may affect results. Cystatin C with Glomerular Filtration Rate is a suitable alternative for these patients. ANION GAP 13 5 - 20 mmol/L 06/08/2025 7:02 AM [facility] Blood Venipuncture / Unknown 06/08/2025 6:20 AM CDT 06/08/2025 6:35 AM CDT us Frank Y Anastacia DO CHEMISTRY ORDERABLES Final Resul t [facility] CLIA # [id number] [address] [place] [phone] * CYCLIC CITRULLINATED PEPTIDE AB IGG (2025 3:40 PM CDT) CYCLIC CITRULLINATED PEPTIDE AB IGG <16 UNITS [facility] Comment: Reference Range Negative: <20 Weak Positive: 20-39 Moderate Positive: 40-59 Strong Positive: >59 Test Performed at: [facility] [address] [facility] [place] [address] Raquel Mukherjee MD Blood 2025 3:40 PM CDT 05/30/2025 6:38 AM CDT Ruth Ann VALDIVIAP CHEMISTRY ORDERABLES Fin al Result Performing Organization Address City/[facility]/ZIP Co de Phone Number [facility] [phone] [facility] [address] [place] [address] * RHEUMATOID FACTOR (2025 3:40 PM CDT) RHEUMATOID FACTOR <10 <14 IU/mL [facility] Comment: Test Performed at: [facility] [address] [facility] [place] [address] Raquel Mukherjee MD Blood 2025 3:40 PM CDT 05/30/2025 6:38 AM CDT Ruth Ann Ramirez PUBLIC POLICY COORDINATOR CHEMISTRY ORDERABLES Fin al Result [facility] [phone] [facility] [address] [address], [place] [address] * (ABNORMAL) MARISSA SCREEN W/REFLEX (2025 3:40 PM CDT) MARISSA SCREEN POSITIVE (A) NEGATIVE [facility] [place] Comment: MARISSA IFA is a first line screen for detecting the presence of up to approximately 150 autoantibodies in various autoimmune diseases. A positive MARISSA IFA result is suggestive of autoimmune disease and reflexes to titer, pattern and the 3 tiered Multiplex 11 Antibody [place]. Testing in the [place] stops at the first positive result, and does not preclude additional positive results. Further laboratory testing may be considered if clinically indicated. For additional information, please refer to http://education.Writer.ly/faq/UTW227 (This link is being provided for informational/ educational purposes only.) MARISSA TITER 1:320(H) titer [facility] [place] Comment: Reference Range <1:40 Negative 1:40-1:80 Low Antibody Level >1:80 Elevated Antibody Level MARISSA PATTERN Nuclear, Homogene ous(A) [facility] [place] Comment: Homogeneous pattern is associated with systemic lupus erythematosus (SLE), drug-induced lupus and juvenile idiopathic arthritis. AC-1: Homogeneous International Consensus on MARISSA Patterns (https://doi.org/10.1515/jeam-2418-6837) DNA AUTOABS DOUBLE STRANDED <1 IU/mL [facility] [place] Comment: IU/mL Interpretation < or = 4 Negative 5-9 Indeterminate > or = 10 Positive GUSTAFSON IGG AB <1.0 NEG <1.0 NEG AI [facility] [place] RAMON ABS, SM/HISTORY TEACHER AB <1.0 NEG <1.0 NEG AI [facility] [place] HISTORY TEACHER AB 3.9 POS(A) <1.0 NEG AI [facility] [place] CHROMATIN (NUCLEOSOMAL) ANTIBODY <1.0 NEG <1.0 NEG AI [facility] [place] Comment: ANTIBODY PREVALENCE IN TIER 1 Double stranded DNA (dsDNA) antibodies are present in 57% to 62% systemic lupus erythematosus (SLE), 10% to 43% polymyositis, 11% to 20% Sjogren's syndrome, 8% systemic sclerosis (scleroderma) and 0% to 8% mixed connective tissue disease (MCTD). Chromatin antibody is present in >80% MCTD, 37% to 73% SLE, 14% systemic sclerosis, 12% Sjogren's syndrome and 8% polymyositis. Ribonucleoprotein (HISTORY TEACHER) antibodies are to HISTORY TEACHER A and/or HISTORY TEACHER 68kD proteins; antibodies to one or both are present in >80% MCTD, 22% to 48% SLE, 14% systemic sclerosis, 12% Sjogren's and 8% polymyositis. Sm/HISTORY TEACHER antibodies are directed to epitopes formed in a complex of Sm and HISTORY TEACHER; antibodies to the Sm/HISTORY TEACHER complex are present in 54% to 94% MCTD, 30% SLE, 4% systemic sclerosis, and 9% Sjogren's and polymyositis. Sm antibody is present in 20% to 30% SLE, 8% MCTD, 10% polymyositis, 0% systemic sclerosis and 4% Sjogren's syndrome. Double stranded DNA, Chromatin, Ribonucleoprotein, Sm/HISTORY TEACHER complex and Sm antibodies are present in <2% of normal blood donors. The [place] does not rule out autoimmune disease characterized by other autoantibody specificities such as rheumatoid arthritis, autoimmune hepatitis, primary biliary cirrhosis, autoimmune thyroiditis, Frantz's disease, pernicious anemia, autoimmune neuropathies, vasculitis, celiac disease and bullous disease. Please contact your local [facility] laboratory if you are interested in additional testing. MARISSA PROFILE INTERP [facility] Comment: HISTORY TEACHER antibody is found in patients with mixed connective tissue disease in high titer. This antibody may also be seen in systemic lupus erythematosus and other connective tissue diseases. A positive result at this stage of testing stops further testing, and does not preclude additional positive antibodies. Clinical correlation is required to assess the need for testing additional analytes. Test Performed at: [email or web address] [id number] [place] [address] Raquel Mukherjee MD Blood 2025 3:40 PM CDT 05/30/2025 6:38 AM CDT Rut hAnn Ramirez PUBLIC POLICY COORDINATOR CHEMISTRY ORDERABLES Fin al Result [facility] [phone] [email or web address] [id number] [place] [address] * TSH (2025 3:40 PM CDT) TSH 3.53 mIU/L [facility] Comment: Reference Range > or = 20 Years 0.40-4.50 Ranges First trimester 0.26-2.66 Second trimester 0.55-2.73 Third trimester 0.43-2.91 Test Performed [facility]: [facility] [address] Raquel Mukherjee MD Blood 2025 3:40 PM CDT 05/30/2025 5:34 AM CDT Marita Storm PUBLIC POLICY COORDINATOR CHEMISTRY ORDERABLES Fin al Result Performing Organization Address City/State/[facility] Co de Phone Number [facility] [phone] [facility] [address] from Last 3 Months Insurance [employer] [place] [id number] Advance Directives For more information, please contact: [phone] * Full Code (Latest Code Status on File) Date Activated Date Inactivated Comments 07/15/2023 2:56 AM 07/17/2023 7:52 PM Care Teams Rehabilitation Counselor Relationship Specialty Start Date End Date Kenneth Gr MD [address] [address] PCP - General Family Practice 01/31/18
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
[2025-06-08 09:43] VITALS: BP 129/84; PULSE 84; RESP 16; TEMP 36.7; O2SAT 100; BMI 33.7
--- NOTE | 2025-06-08 09:52 | W.ED.PREGNAN ---
HPI - General: Chief complaint: Vaginal Bleeding Stated complaint: preg test request Time Seen by Provider: 06/08/25 09:40 Source: patient Mode of arrival: ambulatory Limitations: no limitations History of Present Illness: 20-year-old female 20-year-old female who is roughly 5 weeks . Patient was seen at [place] at [facility] to physician Dr. Ferrera there patient started having bleeding this morning she states it was heavy states that it slowed down since her pelvic exam there she was transferred here as I did not have any ultrasound capabilities she has some slight cramping denies any severe pain denies any lightheadedness denies any vomiting Related Data Home Medications ?Medication ?Instructions ?Recorded ?Confirmed Control PO 12/30/20 12/30/20 albuterol sulfate 5 mg/mL(0.5 %) 5 mg inhalation Q4H PRN 12/30/20 12/30/20 solution for nebulization albuterol sulfate 90 mcg/actuation 2 puff inhalation Q6H PRN 12/30/20 12/30/20 aerosol inhaler (ProAir HFA) levocetirizine 5 mg tablet (Xyzal) 5 mg PO DAILY 12/30/20 12/30/20 montelukast 10 mg tablet 10 mg PO DAILY 12/30/20 12/30/20 (Singulair) Previous Rx's ?Medication ?Instructions ?Recorded fluoxetine 20 mg capsule (Prozac) 20 mg PO DAILY #30 caps 06/15/21 azithromycin 250 mg tablet See Rx Instructions PO .COMPLEX #6 07/16/21 tabs methylprednisolone 4 mg tablets in See Rx Instructions PO PER PKG DIR 07/16/21 a dose pack (Medrol (Marciano)) #21 ea Allergies Allergy/AdvReac Type Severity Reaction Status Date / Time No Known Allergies Allergy Verified 07/16/21 11:29 Review of Systems : Reports: vaginal bleeding PFSH ED PFSH: Medical History Generalized anxiety disorder Major depressive disorder, single episode, in full remission Social History Smoking and tobacco/nicotine status: never used tobacco/nicotine Physical Exam Const: COMMON NORMALS: no acute distress, patient oriented x3 and healthy appearing HENMT: COMMON NORMALS: normocephalic and atraumatic HEAD & SCALP: normocephalic and atraumatic Neck/C-Spine: COMMON NORMALS: full ROM and supple Chest: COMMONS NORMALS: normal inspection of the chest Resp: COMMON NORMALS: normal respiratory effort Cardio: COMMON NORMALS: regular rate RATE: regular rate GI: COMMON NORMALS: Normal to inspection, nondistended, normoactive bowel sounds present, Soft to palpation, non-tender and no masses PALPATION: Yes Soft to palpation Extremity: COMMON NORMALS: normal to inspection and full ROM Neuro: COMMON NORMALS: patient oriented x3, moves all extremities and no focal motor deficits Psych: COMMON NORMALS: mental status grossly normal, Normal thought process present and cooperative THOUGHT PROCESS: Normal thought process present Skin: COMMON NORMALS: no rashes or lesions noted and no wounds GENERAL SKIN EXAM: no rashes or lesions noted Course Vital Signs: Vital signs: Vital Signs Temperature 98.1 F 06/08/25 09:43 Pulse Rate 84 06/08/25 09:43 Respiratory Rate 16 06/08/25 09:43 Blood Pressure 129/84 06/08/25 09:43 Pulse Oximetry 100 06/08/25 09:43 Oxygen Delivery Me thod Room Air 06/08/25 09:43 MDM - OB/Uterine Contractions Medical Decision Making Patient presents for vaginal bleeding in differential includes miscarriage, threatened miscarriage, ectopic . Patient has no signs of ectopic her formal ultrasound that I got a verbal report from the tech showed no definite IUP she saw no signs of ectopic or free fluid. Her quantitative here is 3900 she had passed clots and possible tissue at [place] for Dr. Ferrera did a pelvic exam after his pelvic exam and removing tissue her bleeding has since slowed and only has some slight spotting at this time she has no signs of any heavy hemorrhage blood pressure here is normal. I informed her of these results inform her she needs to follow-up with her PCP or an VETERINARY SURGERY TECHNICIAN 2 to 4 days to have her quantitative level rechecked she is return if she has any worsening pain or bleeding she understands agrees to the plan. Medical Records I reviewed the patient's medical records. Lab Data I reviewed the patient's lab results. Laboratory Results Ser , Semi-Qnt 3900.00 mIU/mL 06/08/25 09:55 Blood Type O Positive 06/08/25 09:55 Rho(D) Type Rh positive 06/08/25 09:55 XR interpretation done by ED provider, pending radiology final review Discharge Plan Discharge Patient Disposition: Home Clinical Impression: Threatened miscarriage Condition: Stable Prescriptions: No Action montelukast [Singulair] 10 mg tablet 10 mg PO DAILY levocetirizine [Xyzal] 5 mg tablet 5 mg PO DAILY albuterol sulfate [ProAir HFA] 90 mcg/actuation HFA aerosol inhaler 2 puff inhalation Q6H PRN Control PO albuterol sulfate 5 mg/mL solution for nebulization 5 mg inhalation Q4H PRN azithromycin 250 mg tablet See Rx Instructions PO .COMPLEX Qty: 6 0RF Rx Instructions: take 500 mg today (day 1), then 250 mg for 4 days (days 2-5) PO methylprednisolone [Medrol (Marciano)] 4 mg tablets,dose pack See Rx Instructions PO PER PKG DIR Qty: 21 0RF Rx Instructions: PO PER PKG DIR fluoxetine [Prozac] 20 mg capsule 20 mg PO DAILY Qty: 30 1RF Discharge Orders: Discharge ED (Routine); Ordered 06/08/25 Ordered By: Nicki Uribe Referrals: Kerwin Pena MD [Physician, VETERINARY SURGERY TECHNICIAN] - 4-7 days Kenneth Gr [Primary Care Provider, Family Practice] Discharge Diet: Advance as tolerated Discharge Activity: Resume usual activity Patient Instructions: Miscarriage (ED), Threatened Miscarriage (ED) Print Language: Andorran Coding Level of Care Code ED In Tube Conversion Technician for Romaine Romo
[2025-06-08 10:55] VITALS: BP 129/84; PULSE 72; O2SAT 99
--- NOTE | 2025-06-10 08:37 | DCPLANNER ---
messaged [facility] f/u
== END 2025-06-08 10:59 | disposition home or self-care (01) ==
PROVIDERS: Emergency Provider Emergency Medicine; PCP Family Medicine
DX: O20.0 Threatened abortion (principal); Z3A.01 Less than 8 weeks gestation of pregnancy
CPT/HCPCS: 36415; 76817; 84702; 86850; 86900; 99284